=== PATIENT | female | born 1985 | race Caucasian/White ===

== ENCOUNTER 2021-09-17 11:46 | Outpatient (CLI) | payer BC, SELFPAY ==
[2021-09-17 16:19] LABS: Albumin* 4.4 g/dL (3.3-5.0); Chloride* 106 mmol/L (96-114)
[2021-09-17 16:20] LABS: Potassium* 4.1 mmol/L (3.6-5.1); Sodium* 139 mmol/L (135-149)
[2021-09-17 16:22] LABS: Alkaline Phosphatase* 69 U/L (40-150); Aspartate Amino Transferase* 30 U/L (12-35); Bilirubin Total* 0.6 mg/dL (0.1-1.5); Blood Urea Nitrogen* 15 mg/dL (5-24); Carbon Dioxide* 25 mmol/L (20-32); Creatinine* 0.6 mg/dL (0.5-1.5); Estimated Glomerular Filt Rate 117.75
[2021-09-17 16:23] LABS: Alanine Aminotransferase* 31 U/L (4-35); Calcium* 9.6 mg/dL (8.4-10.6); Glucose* 96 mg/dL (60-115)
== END 2021-09-17 11:47 | disposition home or self-care (01) ==
PROVIDERS: PCP Family Medicine; Visit Provider Family Medicine
DX: R10.11 Right upper quadrant pain (principal); E01.0 Iodine-deficiency related diffuse (endemic) goiter
CPT/HCPCS: 80053; 84443

== ENCOUNTER 2021-09-21 11:46 | Outpatient (CLI) | payer BC, SELFPAY ==
[2021-09-21 17:43] LABS: Free T4 Free Thyroxine* 1.51 ng/dL (0.70-1.85)
[2021-09-23 20:36] LABS: Free T3 3.5 pg/mL (2.5-4.3)
== END 2021-09-21 11:47 | disposition home or self-care (01) ==
LOC: NFLDREF 11:49
PROVIDERS: PCP Family Medicine; Visit Provider Family Medicine
DX: R10.11 Right upper quadrant pain (principal); E01.0 Iodine-deficiency related diffuse (endemic) goiter
CPT/HCPCS: 84439; 84480; 84481

== ENCOUNTER 2021-10-01 07:17 | Outpatient (CLI) | payer BC, SELFPAY ==
--- NOTE | 2021-10-01 07:15 | CRLHL7_ITS ---
For Patients: As a result of the Century Cures Act, medical imaging exams and procedure reports are released immediately into your electronic medical record. You may view this report before your referring provider. If you have questions, please contact your health care provider. INDICATION: Right upper quadrant pain COMPARISON: none TECHNIQUE: Real time sanderson scale imaging and color Doppler analysis was performed of the right upper quadrant. FINDINGS: The patient`s liver is of normal size and has diffusely coarsened and increased echogenicity. Focal fatty sparing noted adjacent to the gallbladder fossa. There is a normal appearance of the hepatic IVC and proximal abdominal aorta. There is no evidence of ascites. The gallbladder is of normal size and there are 2 mobile echogenic and shadowing gallstones within the gallbladder lumen measuring 1.4 cm each. The gallbladder wall measures 3 mm in thickness. The common bile duct is of normal size and measures 5 mm in diameter at the level of the shona hepatis. The pancreas is not well visualized due to overlying bowel gas. There is no evidence of a stone or hydronephrosis within the right kidney. The right kidney measures 11.3 cm in length. IMPRESSION: Cholelithiasis with 2 mobile gallstones measuring 1.4 cm each. Diffuse hepatic steatosis. Dictated by Alon Diamond MD @ 10/01/2021 11:16:12 AM (Electronically Signed)
== END 2021-10-01 07:18 | disposition home or self-care (01) ==
LOC: US 07:18
PROVIDERS: PCP Family Medicine; Visit Provider Family Medicine
DX: R10.11 Right upper quadrant pain (principal); K80.20 Calculus of gallbladder without cholecystitis without obstruction; K76.0 Fatty (change of) liver, not elsewhere classified
CPT/HCPCS: 76705

== ENCOUNTER 2022-05-20 08:09 | Outpatient (CLI) | payer BC, SELFPAY | END 2022-05-20 08:10 | disposition home or self-care (01) | LOC: LONREF 08:10 | PROVIDERS: PCP Family Medicine; Visit Provider Family Medicine | DX: E78.5 Hyperlipidemia, unspecified (principal); E66.9 Obesity, unspecified; Z13.1 Encounter for screening for diabetes mellitus | CPT/HCPCS: 80061 ==

== ENCOUNTER 2022-08-16 10:23 | Outpatient (CLI) | payer BC, SELFPAY | END 2022-08-16 10:24 | disposition home or self-care (01) | LOC: NFLDREF 10:24 | PROVIDERS: PCP Family Medicine; Visit Provider Obstetrics & Gynecology | DX: N93.9 Abnormal uterine and vaginal bleeding, unspecified (principal); E55.9 Vitamin D deficiency, unspecified; E66.9 Obesity, unspecified; E78.5 Hyperlipidemia, unspecified | CPT/HCPCS: 84443 ==

== ENCOUNTER 2022-08-31 08:55 | Outpatient (CLI) | payer BC, SELFPAY ==
--- NOTE | 2022-08-31 09:15 | CRLHL7_ITS ---
For Patients: As a result of the Century Cures Act, medical imaging exams and procedure reports are released immediately into your electronic medical record. You may view this report before your referring provider. If you have questions, please contact your health care provider. INDICATION: AUB AND VAGINAL BLEEDING COMPARISON: 01/22/2018 TECHNIQUE: 2D sanderson scale and color Doppler images were acquired of the pelvis using a transabdominal and transvaginal approach. FINDINGS: Uterus is heterogeneous. There is a right-sided uterine fibroid measuring 3.6 x 3.1 x 3.2 cm. A left fundal fibroid is also noted measuring 4.2 x 3.2 x 3.8 cm. The uterus measures 10.8 x 5.3 x 8.1 cm. The endometrium measures 1 cm. The right ovary measures 2.9 x 2.2 x 3.0 cm in size and the left ovary measures 3.4 x 1.3 x 1.9 cm. The ovaries demonstrate normal arterial and venous blood flow on color Doppler analysis. There are no suspicious fluid collections within the cul-de-sac. IMPRESSION: Uterine fibroids measuring 3.6 cm and 4.2 cm. Endometrial thickness 1 cm. Dictated by Alon Diamond MD @ 08/31/2022 9:41:22 AM (Electronically Signed)
== END 2022-08-31 08:56 | disposition home or self-care (01) ==
LOC: US 08:55
PROVIDERS: PCP Family Medicine; Visit Provider Obstetrics & Gynecology
DX: N93.9 Abnormal uterine and vaginal bleeding, unspecified (principal); D25.9 Leiomyoma of uterus, unspecified; R93.89 Abnormal findings on diagnostic imaging of other specified body structures
CPT/HCPCS: 76830; 76856

== ENCOUNTER 2023-11-01 12:56 | Outpatient (CLI) | payer OTHER, SELFPAY ==
--- NOTE | 2023-11-01 13:00 | CRLHL7_ITS ---
For Patients: As a result of the Century Cures Act, medical imaging exams and procedure reports are released immediately into your electronic medical record. You may view this report before your referring provider. If you have questions, please contact your health care provider. BILATERAL SCREENING MAMMOGRAM WITH COMPUTER-AIDED DETECTION AND TOMOSYNTHESIS TECHNIQUE: CC and MLO views were obtained. These mammographic images have been obtained using full-field digital technique. These mammographic images were interpreted with the benefit of computer-aided detection. Breast Tomosynthesis was used in this interpretation. COMPARISON FILM: Baseline. FINDINGS: The breasts are heterogeneously dense, which may obscure small masses IMPRESSION: There is no radiographic evidence for malignancy. ASSESSMENT: BI-RADS Category 2: Benign RECOMMENDATION: Routine screening mammogram in 1 year. A lay language report of this examination will be provided to the patient. Alon Diamond M.D. Diagnostic Radiologist [email or web address] Transcribed: 6:40 [email or web address] ontiveros/Dictated by: Alon Diamond MD @ 11/02/2023 11:00:00 AM (Electronically Signed)
== END 2023-11-01 12:57 | disposition home or self-care (01) ==
LOC: MAMMO 12:58
PROVIDERS: PCP Family Medicine; Visit Provider Family Medicine
DX: Z12.31 Encounter for screening mammogram for malignant neoplasm of breast (principal); R92.2 Inconclusive mammogram
CPT/HCPCS: 77063; 77067

== ENCOUNTER 2024-04-05 14:22 | Outpatient (CLI) | payer OTHER, SELFPAY | END 2024-04-05 14:23 | disposition home or self-care (01) | PROVIDERS: PCP Family Medicine; Visit Provider Family Medicine | DX: R53.83 Other fatigue (principal); E01.0 Iodine-deficiency related diffuse (endemic) goiter; E78.5 Hyperlipidemia, unspecified; E66.9 Obesity, unspecified; R60.9 Edema, unspecified; Z13.29 Encounter for screening for other suspected endocrine disorder | CPT/HCPCS: 82533; 84439; 84443 ==

== ENCOUNTER 2024-04-10 12:07 | Outpatient (CLI) | payer OTHER, SELFPAY ==
--- NOTE | 2024-04-10 12:15 | CRLHL7_ITS ---
For Patients: As a result of the Cures Act, medical imaging exams and procedure reports are released immediately into your electronic medical record. You may view this report before your referring provider. If you have questions, please contact your health care provider. INDICATION: Iodine deficiency related goiter. TECHNIQUE: Ultrasound thyroid with sanderson-scale and color Doppler analysis. COMPARISON: None. FINDINGS: Right lobe: 6.3 x 1.5 x 3.0 cm. Lesion 1: 0.5 cm cystic, TR 1. Left lobe: 6.1 x 1.8 x 2.0 cm. Lesion 1: 0.4 cm cystic, TR 1. Lesion 2: 0.8 cm complex, TR 3. Isthmus: Unremarkable. Echotexture of the thyroid parenchyma is normal. Color Doppler analysis demonstrates normal vascularity. No evidence of lymphadenopathy or parathyroid mass. IMPRESSION: Moderate diffuse enlargement of the thyroid gland. There are 2 simple cysts and a separate subcentimeter complex lesion measuring 0.8 cm with a TI-RADS category of TR 3. - ACR TI-RADS [email or web address] TR1: Benign No FNA TR2: Not Suspicious No FNA TR3: Mildly Suspicious FNA if greater than or equal to 2.5 cm Follow if greater than or equal to 1.5 cm TR4: Moderately Suspicious FNA if greater than or equal to 1.5 cm Follow if greater than or equal to 1 cm TR5: Highly Suspicious FNA if greater than or equal to 1 cm Follow if greater than or equal to 0.5 cm Dictated by Fran Simmons MD @ 04/11/2024 3:40:01 AM (Electronically Signed)
== END 2024-04-10 12:08 | disposition home or self-care (01) ==
LOC: US 12:09
PROVIDERS: PCP Family Medicine; Visit Provider Family Medicine
DX: E01.0 Iodine-deficiency related diffuse (endemic) goiter (principal); E04.9 Nontoxic goiter, unspecified; E04.1 Nontoxic single thyroid nodule
CPT/HCPCS: 76536

== ENCOUNTER 2024-12-05 09:00 | Outpatient (CLI) | payer OTHER, SELFPAY ==
--- NOTE | 2024-12-05 09:15 | CRLHL7_ITS ---
For Patients: As a result of the Century Cures Act, medical imaging exams and procedure reports are released immediately into your electronic medical record. You may view this report before your referring provider. If you have questions, please contact your health care provider. INDICATION: BILATERAL SCREENING MAMMOGRAM, ASYMPTOMATIC 39 Y/O FEMALE COMPARISON: 11/01/2023 TECHNIQUE: Digital mammogram in CC and MLO projections including computer-aided detection (CAD) and tomosynthesis. BREAST COMPOSITION: There are scattered areas of fibroglandular density. FINDINGS: No suspicious findings. ASSESSMENT: BI-RADS 1 Negative RECOMMENDATION: Annual screening mammogram. A lay language report of this examination will be provided to the patient. Dictated by: Alon Diamond MD @ 12/05/2024 12:36:57 (Electronically Signed)
== END 2024-12-05 09:01 | disposition home or self-care (01) ==
LOC: MAMMO 09:00
PROVIDERS: PCP Family Medicine; Visit Provider Family Medicine
DX: Z12.31 Encounter for screening mammogram for malignant neoplasm of breast (principal)
CPT/HCPCS: 77063; 77067

== ENCOUNTER 2025-01-16 13:47 | Outpatient (CLI) | payer OTHER, SELFPAY | END 2025-01-16 13:48 | disposition home or self-care (01) | PROVIDERS: PCP Family Medicine; Visit Provider Physician Assistant Medical | DX: Z00.00 Encounter for general adult medical examination without abnormal findings (principal); E06.3 Autoimmune thyroiditis | CPT/HCPCS: 80053; 80061; 84443; 86376 ==

== ENCOUNTER 2025-01-16 14:45 | Outpatient (CLI) | payer OTHER, SELFPAY ==
--- NOTE | 2025-01-16 14:45 | CRLHL7_ITS ---
For Patients: As a result of the Century Cures Act, medical imaging exams and procedure reports are released immediately into your electronic medical record. You may view this report before your referring provider. If you have questions, please contact your health care provider. INDICATION: Follow-up fibroids COMPARISON: 08/31/2022 TECHNIQUE: 2D sanderson-scale and color Doppler images were acquired of the pelvis using a transabdominal and transvaginal approach. Transvaginal imaging performed to better visualize the endometrial stripe and ovaries. FINDINGS: Right mid fibroid measures 3.3 x 2.5 x 2.7 cm, previously measuring 3.6 x 3.1 x 3.2 cm. Left fundal fibroid measures 3.1 x 3.9 x 3.7 cm, previously measuring 4.2 x 3.2 x 3.8 cm. Uterus measures 9.9 cm in length by 5.6 cm in AP diameter by 7.8 cm in transverse dimension. The endometrium is obscured. The right ovary measures 2.0 x 2.0 x 2.2 cm in size and the left ovary is not visualized due to overlying bowel gas. The right ovary demonstrates normal arterial and venous blood flow on color Doppler analysis. There are no suspicious fluid collections within the cul-de-sac. IMPRESSION: Similar uterine fibroids. Dictated by Alon Diamond MD @ 01/17/2025 6:27:48 AM (Electronically Signed)
== END 2025-01-16 14:46 | disposition home or self-care (01) ==
LOC: US 14:46
PROVIDERS: PCP Physician Assistant Medical; Visit Provider Obstetrics & Gynecology
DX: D25.9 Leiomyoma of uterus, unspecified (principal)
CPT/HCPCS: 76830; 76856

== ENCOUNTER 2025-02-21 06:00 | Day surgery (SDC) | payer OTHER, SELFPAY ==
[2025-02-21] VITALS (21 sets, daily range): BP systolic 110–144; BP diastolic 56–87; PULSE 57–77; RESP 14–20; TEMP 36.2–36.8; O2SAT 92–98; BMI 43.6
[2025-02-21 06:26] LABS: Ur HCG Qualitative* Negative (Negative)
[2025-02-21] MEDS: LACTATED RINGERS 1000 ML 1,000 ML 100 ML IV ×3 (06:45→11:10)
[2025-02-21] MEDS: SODIUM CHLORIDE 0.9 % (FLUSH) 10 ML SYRINGE IVF (06:45)
[2025-02-21 06:49] LABS: Hemoglobin* 14.3 gm/dL (12.0-16.0)
[2025-02-21] MEDS: SCOPOLAMINE 1 MG/3 DAY PATCH 1 PATCH TRANSDERMA (07:00)
[2025-02-21] MEDS: GABAPENTIN 600 MG TABLET PO (07:00)
[2025-02-21] MEDS: ACETAMINOPHEN 500 MG TABLET 1000 MG PO ×2 (07:00→14:04)
[2025-02-21 07:05] LABS: Creatinine* 0.6 mg/dL (0.5-1.5); Est. Creatinine Clearance* 88.63; Estimated Glomerular Filt Rate 116 ml/min
--- NOTE | 2025-02-21 07:19 | W.PM.H&PU ---
History & Physical Update History & Physical Update H&P Reviewed and patient assessed: The following changes are noted below H&P Updates: She has decreased smoking amount significantly and is utilizing nicotine patches! Congratulated her on that. Otherwise, no new changes.
[2025-02-21] MEDS: BUPIVACAINE 0.25% 30 ML INJECTION (09:00)
--- NOTE | 2025-02-21 09:28 | W.PM.NB ---
Nerve Block Nerve Block Time Seen by Provider: 07:40 Date Seen: 02/21/25 Type of block requested by surgeon for post-operative analgesia: TAP Side: bilateral Time out performed: Yes Verification of patient name: Yes Verification of date of : Yes Site marking: site marked Name of person performing procedure: Dane Continuous monitoring Was continuous monitoring of O2 sat, B/P, quality assurance monitor chassis, recorded every 15 minutes?: Yes Procedure Checklist: sterile prep, needles and gloves Ultrasound guided. Images saved: Yes Medications given in 5ml increments after negative aspiration: Marcaine %: 0.25 mL: 30 Needle gauge: 20 and Exparel mL: 10 Patient tolerated procedure well: Yes Additional comments: Needle noted between internal oblique and transversus abdominus. Local spread visualized Block Charges Block Charge (with Pro Fee): TAP Bilateral Use of Ultrasound Machine for Block: Yes- US Guidance/pain block
--- NOTE | 2025-02-21 11:04 | SUR.OPER ---
uterus weight: 294 g
[2025-02-21] MEDS: SILVER NITRATE APPLICATOR 1 EACH STICK..EA. TOPICAL (12:03)
--- NOTE | 2025-02-21 12:13 | SUR.OPER ---
Nexplanon removed from left arm at [address] Bowers
--- NOTE | 2025-02-21 12:23 | W.PM.GYNPROC ---
Procedure Note Date of procedure: 02/21/25 Will [facility] bill your pro fee for this procedure?: Yes Pre-op diagnosis: Abnormal uterine bleeding, fibroid uterus. Chronic pelvic pain. Post-op diagnosis: Same, extensive pelvic adhesions. Procedure: Total laparoscopic hysterectomy, bilateral salpingectomy, extensive lysis of adhesions, cystoscopy. Anesthesia: GETA Complications: None Surgeon: Sumanth Bowers MD Estimated blood loss (mL): 150 IV fluids (mL): 2,400 Urine Output (mL): 200 Pathology: specimen obtained, sent to pathology (Uterus and bilateral fallopian tubes) Condition: stable Disposition: same day Findings: Findings: Normal external genitalia, speculum exam: small cervix with evidence of LEEP. No gross lesions or abnormal discharge. Uterine sound of 8cm. Intra abdominal survey: grossly normal intestine, liver, gallbladder and stomach. Pelvis: Anterior uterine wall completely adhered to abdominal wall. Multiple uterine subserosal fibroids, largest on fundus of about 4-5cm. Bladder adhered to lower uterine segment and abdominal wall. Grossly normal right fallopian tube and ovary. Left ovary with a small hemorrhagic cyst of about 2cm. Left fallopian tube at the fimbrial end with thin adhesion to sigmoid serosa and epiploica. Cystoscopy: Intact bladder mucosa, no suture material and bilateral ureteral jets noted. Procedure Description: DESCRIPTION OF PROCEDURE: After obtaining informed consent, the patient was taken to the operating room where general anesthesia was obtained without difficulty. She was prepared and draped in the normal sterile fashion in the low dorsal lithotomy position. A Tavarez catheter was inserted into the bladder and left to drain by gravity. A medium Graves open-sided speculum was introduced into the vagina. The cervix was visualized and grasped along its anterior lip with a single-tooth tenaculum. The uterus was gently sounded. Sound length was found to be 8 cm. Cervical dilation completed with Hegar dilators. I then placed a small VCare uterine manipulator. The tenaculum and speculum were removed. The green VCare cup was digitally pressed up against the cervix and then cinched in place with the blue accessory cup. I then changed gloves and my attention was turned to the abdomen. The inferior aspect of the umbilical fold was injected with 0.5% Marcaine plain. A 5 mm vertical incision was then made within the umbilical fold using a scalpel. A direct entry technique was used, a 5 mm laparoscopic port with CO2 gas set at 5mmHg was introduced under direct visualization. The trocar was removed leaving the sleeve in place. The CO2 gas flow was turned to high flow to achieve pneumoperitoneum. The 5 mm laparoscope was used then to carefully inspect the abdomen and pelvis with findings noted above. Pictures were taken for documentation purposes. The patient was placed in Trendelenburg positioning. Two additional ports were placed in the right and left lower quadrants under direct visualization after first anesthetizing the skin and fascia with 0.5% Marcaine plain. On the left side a 11mm port was utilized and on the right side a 5mm port placed. An additional 5mm port was placed on the abdomen at the level of the umbilicus to the left of umbilicus, about 5-6 cm lateral from umbilicus under direct visualization. Once the ports were in place, the VCare manipulator cup was identified posteriorly and palpated with a blunt grasper, as anteriorly the uterus was adhered as described above. Lysis of adhesions started with laparoscopic scissors and LigaSure bipolar device. The bladder was backfilled with sterile milk to better identify it and continue with anterior lysis of adhesions. 200mL of sterile milk utilized. After a good dissection made and bladder was released from the lower uterine segment, I was able to proceed with usual hysterectomy. This lysis of adhesions was extensive and took at least 45-50 minutes. Bilateral ureters were identified coursing in the normal anatomic location. Bladder was left to drain again at this time. Starting on the left side. The left tube was elevated with a graspers, but noted to be adhered to the sigmoid epiploica. Decision made to proceed with hysterectomy and re evaluate at end of surgery. The left utero-ovarian ligament was sealed and transected in a wide swath with the LigaSure device. Hemostasis secured. The left round ligament was then sealed in a wide swath and transected with the LigaSure, excellent hemostasis was obtained. The broad ligament was then opened using the LigaSure anteriorly and posteriorly along the cervix from the left within the confines of the VCare cup. Pressure was maintained on the uterine manipulator the whole time. The left uterine vessels were sealed in a wide swath and transected with the LigaSure, then the tissues over the VCare cup edge on the left side were thinned using the LigaSure to the midline posteriorly and anteriorly so that the fascial layer could be identified. The right tube was then elevated with a atraumatic graspers. The LigaSure device was used to dissect the tube from it's ovarian and broad ligament and cornual attachments before removing the tube through a lower port. Excellent hemostasis was obtained. The right utero-ovarian ligament sealed and transected in a wide swath with the LigaSure device. Hemostasis secured. The right round ligament was then sealed in a wide swath and transected with the LigaSure, excellent hemostasis was obtained. The broad ligament was then opened using the LigaSure anteriorly and posteriorly along the cervix from the right within the confines of the VCare cup. Pressure was maintained on the uterine manipulator the whole time. The right uterine vessels were sealed in a wide swath and transected with the LigaSure, then the tissues over the VCare cup edge on the right side were thinned using the LigaSure to the midline posteriorly and anteriorly so that the fascial layer could be identified. Once an adequate dissection was made circumferentially, monopolar laparoscopic spatula was utilized to dissect until identification of the green Vcare cup, tissue dissected circumferentially around the cervix within the groove of the VCare cup. Once the dissection was completed circumferentially, from the vagina the uterine manipulator was removed. The cervix was grasped with tenaculum a long weighted speculum placed posteriorly and a small [place] anteriorly. The uterus was then removed in pieces utilizing a combination of Sosa scissors and #11 blade. The uterus was removed entirely vaginally and a glove with sponges was left in the vagina to aid in maintenance of pneumoperitoneum. I again changed gloves and attention was placed in the abdomen. The vaginal cuff was reapproximated in a running fashion with a V-Loc suture starting on the right side up to midline and a second V-Loc suture was utilized from midline and towards the left side until complete closure of vaginal cuff. The sutures were then cut flush with the tissues. The pelvis was copiously irrigated and hemostasis visualized. I was then able to re evaluate the left fallopian tube and thin adhesion to the left sigmoid epiploica was released with laparoscopic scissors and this allowed adequate separation of fallopian tube to complete removal with Bipolar device. Left fallopian tube and fimbriae removed through 11 port. Hemostasis secured. Preparations were then made for cystoscopy. Fluorescein was administered intravenously along with the IV fluids. The Tavarez catheter was removed. The patient was flattened out. Cystoscopy was performed using sterile normal saline as distending medium. The bladder was carefully inspected and noted to be free of filling defects or suture material. Both ureteral orifices were easily visualized and fluorescein tinged urine jets were noted from both sides. The cystoscope was then removed. The Tavarez catheter was replaced into the bladder. Speculum evaluation of the vaginal cuff was completed at this moment, showing adequate closure and no evidence of bleeding or escape of pneumoperitoneum. Attention was once again turned to the abdomen. The abdomen and pelvis were again irrigated and inspected for hemostasis. Erika was placed over excision sites to further secure hemostasis. Attention was then placed to the 11mm port site and under direct visualization using a Derik-Brady system the fascia was closed with Vicryl 0 suture. All instruments were then removed under direct visualization. Pneumoperitoneum was allowed to escape. The skin at all port sites was closed in a subcuticular fashion with 4-0 Monocryl. LiquiBand was then placed over the incisions. The patient tolerated the procedure well. Sponge, lap, needle, and instrument counts were reported as correct x2. The patient was taken to the recovery room awake and in stable condition. She did receive 3g of Ancef preoperatively as infection prophylaxis. PATHOLOGY SPECIMEN(S): Uterus, cervix, bilateral fallopian tubes. I then proceeded with removal of Nexplanon as follows: PROCEDURE: The Nexplanon is palpated in the left arm. The distal end of Nexplanon is marked with marking pen. The area surrounding the Nexplanon was prepared with Betadine. A total of 5 ml of 0.25%Marcaine plain is injected. A skin incision was made over the distal aspect of the device. The Nexplanon is grasped with hemostat and the capsule is lysed. The device is removed without difficulty. The site was dressed with Dermabond-Band Aid and a pressure dressing. The patient tolerated the procedure well.
--- NOTE | 2025-02-21 12:43 | P.ANES_ITS ---
Anesthesia Charges Start Date/Time Anesthesia Start Date: 02/21/25 Anesthesia Start Time: 07:32 Stop Date/Time Anesthesia Stop Date: 02/21/25 Anesthesia Stop Time: 12:27 Coding CPT Codes CPT Codes: ANESTH SURG LOWER ABDOMEN - 71002 ([id number]) P3 - PATIENT W/SEVERE SYS DISEASE, QZ - TOY DEPARTMENT MANAGER SVC W/O DIGITAL ACCOUNT COORDINATOR BY
--- NOTE | 2025-02-21 12:43 | W.ANESCHARGE ---
Anesthesia Charges Start Date/Time Anesthesia Start Date: 02/21/25 Anesthesia Start Time: 07:32 Stop Date/Time Anesthesia Stop Date: 02/21/25 Anesthesia Stop Time: 12:27 Coding CPT Codes CPT Codes: ANESTH SURG LOWER ABDOMEN - 25308 ([id number]) P3 - PATIENT W/SEVERE SYS DISEASE, QZ - LICENSED PHYSICAL THERAPY ASSISTANT SVC W/O MICROFILM MOUNTER BY
[2025-02-21] MEDS: ONDANSETRON 2 MG/ML inj 4 MG IVP (12:59)
[2025-02-21] MEDS: PROCHLORPERAZINE 5 MG/ML VIAL IVP (13:47)
--- NOTE | 2025-02-21 14:43 | SUR.PHASEII ---
attempted bladder fill. pt would not tolerate 300cc. only able to fill [id number]. pt immedieately voided 200cc. Dr lundberg notified
== END 2025-02-21 15:25 | disposition home or self-care (01) ==
LOC: OR 06:01
PROVIDERS: PCP Physician Assistant Medical; Visit Provider Obstetrics & Gynecology
PROC: 0UT94ZZ Resection of Uterus, Percutaneous Endoscopic Approach (ICD-10-PCS; CPT 58573; principal; 2025-02-21 07:15)
DX: N93.8 Other specified abnormal uterine and vaginal bleeding (principal); G89.29 Other chronic pain; R10.20 Pelvic and perineal pain unspecified side; N73.6 Female pelvic peritoneal adhesions (postinfective); G89.18 Other acute postprocedural pain; D25.2 Subserosal leiomyoma of uterus; N83.202 Unspecified ovarian cyst, left side; Z30.46 Encounter for surveillance of implantable subdermal contraceptive
CPT/HCPCS: 58573; 49329; 11982; 00840; 36415; 64488; 76942; 81025; 82565; 85018; 86850; 86900; 86901; A4314; A9270; J0330; J0665; J0666; J0690; J0780; J1100; J1171; J1885; J2405; J2704; J2710; J3010; J3475; J3490; J7120

== ENCOUNTER 2025-03-07 09:31 | Outpatient (CLI) | payer OTHER, SELFPAY | END 2025-03-07 09:32 | disposition home or self-care (01) | LOC: NFLDREF 09:32 | PROVIDERS: PCP Physician Assistant Medical; Visit Provider Obstetrics & Gynecology | DX: R30.0 Dysuria (principal) | CPT/HCPCS: 87086 ==